=== PATIENT | female | born 1975 | race Two or more races ===

== ENCOUNTER 2019-04-06 21:17 | Emergency (ER) | payer OTHER ==
[~2019-04-06] VITALS: Ht 152.4 cm; Wt 74.8 kg
[2019-04-06 22:00] VITALS: BP 180/98
[2019-04-06 22:57] LABS: INFLUENZA A PATIENT NEGATIVE (NEGATIVE); INFLUENZA B PATIENT NEGATIVE (NEGATIVE)
--- NOTE | 2019-04-06 23:29 | PHYS DOC ---
Past Medical History Past Medical History: No Pertinent History (SYDNI RIVERS APRN) Past Surgical History: No Surgical History (SYDNI RIVERS APRN) Alcohol Use: None Drug Use: None (SYDNI RIVERS APRN) Attending Signature I have participated in the care of this patient and I have reviewed and agree with all pertinent clinical information above including history, exam, and recommendations. (TEMITOPE JORDAN MD) Adult General Chief Complaint Chief Complaint: FLU SYMPTOM HPI HPI Patient is a 44 year old female who presents to the ED today complaining of headaches, body aches chills fever and a cough that began yesterday. (SYDNI RIVERS APRN) Review of Systems Review of Systems Constitutional: Reports fever and body aches Eyes: Denies change in visual acuity, redness, or eye pain [] HENT: Denies nasal congestion or sore throat [] Respiratory: Reports cough, denies shortness of breath [] Cardiovascular: No additional information not addressed in HPI [] GI: Denies abdominal pain, nausea, vomiting, bloody stools or diarrhea [] : Denies dysuria or hematuria [] Musculoskeletal: Denies back pain or joint pain [] Integument: Denies rash or skin lesions [] Neurologic: Reports headache, denies focal weakness or sensory changes [] All other systems were reviewed and found to be within normal limits, except as documented in this note. (SYDNI RIVERS APRN) Current Medications Current Medications Current Medications Medications (Trade) Dose Ordered Sig/Cuca Start Time Stop Time Status Last Admin Dose Admin Acetaminophen (Tylenol) 1,000 mg 1X ONCE 04/06/19 23:45 04/06/19 23:46 DC 04/07/19 00:02 1,000 MG Prednisone (Prednisone) 50 mg 1X ONCE 04/06/19 23:45 04/06/19 23:46 DC 04/07/19 00:02 50 MG (TEMITOPE JORDAN MD) Allergies Allergies Allergies Coded Allergies Type Severity Reaction Last Updated Verified No Known Drug Allergies 04/06/19 No (TEMITOPE JORDAN MD) Physical Exam Physical Exam Constitutional: Well developed, well nourished, no acute distress, non-toxic appearance. [] HENT: Normocephalic, atraumatic, bilateral external ears normal, oropharynx moist, no oral exudates, nose normal. [] Eyes: PERRLA, EOMI, conjunctiva normal, no discharge. [] Neck: Normal range of motion, no tenderness, supple, no stridor. [] Cardiovascular:Heart rate regular rhythm, no murmur [] Lungs & Thorax: Bilateral breath sounds clear to auscultation [] Abdomen: Bowel sounds normal, soft, no tenderness, no masses, no pulsatile masses. [] Skin: Warm, dry, no erythema, no rash. [] Back: No tenderness, no CVA tenderness. [] Extremities: No tenderness, no cyanosis, no clubbing, ROM intact, no edema. [] Neurologic: Alert and oriented X 3, normal motor function, normal sensory function, no focal deficits noted. [] Psychologic: Affect normal, judgement normal, mood normal. [] (SYDNI RIVERS APRN) Current Patient Data Vital Signs Vital Signs Date Time Temp Pulse Resp B/P (MAP) Pulse Ox O2 Delivery O2 Flow Rate FiO2 04/06/19 22:00 98.4 90 14 180/98 (125) 98 Room Air 98.4 (TEMITOPE JORDAN MD) Lab Values Laboratory Tests Test 04/06/19 22:13 Influenza Type A Antigen Negative (NEGATIVE) Influenza Type B Antigen Negative (NEGATIVE) (TEMITOPE JORDAN MD) EKG EKG [] (SYDNI RIVERS APRN) Radiology/Procedures Radiology/Procedures [] (SYDNI RIVERS APRN) Course & Med Decision Making Course & Med Decision Making Pertinent Labs and Imaging studies reviewed. (See chart for details) This is a 44-year-old female patient presenting to the ED today with symptoms suspicious of influenza. Will be discharged with Tamiflu. Tylenol/Motrin for pain or fever. Follow-up with primary care doctor in 1-2 weeks. (SYDNI RIVERS APRN) Dragon Disclaimer Dragon Disclaimer This electronic medical record was generated, in whole or in part, using a voice recognition dictation system. (SYDNI RIVERS APRN) Departure Departure Impression: Primary Impression: Fever Additional Impressions: Cough Viral illness Disposition: HOME, SELF-CARE Condition: STABLE Referrals: NO PCP (PCP) follow up in 1 week with your doctor Patient Instructions: Cough, Adult, [id number], Fever, Adult, [id number] Additional Instructions: You were seen in the emergency room with symptoms suspicious of viral illness likely influenza. We sent you home with Tamiflu, take it as prescribed. Take Tylenol / Motrin for pain or fever. Push fluids, maintain good hand hygiene, follow-up with your doctor in 1-2 weeks. Scripts Oseltamivir Phosphate (TAMIFLU) 75 Mg Capsule 1 CAP PO BID, #10 CAP Prov: SYDNI RIVERS APRN 04/06/19 Problem Qualifiers Primary Impression: Fever Fever type: unspecified Qualified Codes: R50.9 - Fever, unspecified SYDNI RIVERS APRN Apr 06, 2019 23:29 TEMITOPE JORDAN MD Apr 08, 2019 07:49
[2019-04-06] MEDS ORDERED: OSEL75CA PO (23:32)
[2019-04-07] MEDS: ACETAMINOPHEN 500 MG TABLET PO ONE (00:02)
[2019-04-07] MEDS: predniSONE 10 MG TABLET PO ONE (00:02)
== END 2019-04-07 00:03 | disposition home or self-care (01) ==
LOC: ER 21:17
DX: B34.9 Viral infection, unspecified (principal)
CPT/HCPCS: 87804; 99284; J7512